=== PATIENT | male | born 1950 | race Caucasian/White ===

== ENCOUNTER → 2016-12-20 | Outpatient (CLI) | payer BC, OTHER ==
[2015-02-09 10:38] VITALS: BP 142/90
[~2016-12-20] MED LIST: ASPI-482 PO; CYCL10TA2 PO; HYDR-2762 PO; HYDR200T PO; IOHEXOL 180 MG/ML 10 ML VIAL. ONE; LOSA50TA6 PO; OMEG1CAP6 PO; PRAS10TA9 PO; PROP80CA12 PO; methylPREDNISolone ACETATE 40 MG/ML VIAL. ONE; methylPREDNISolone ACETATE 80 MG/ML VIAL. ONE
--- NOTE | 2016-12-21 02:05 | PAIN ---
DATE OF SERVICE: 12/20/2016 DIAGNOSES: Cervical radiculopathy with post-cervical laminectomy syndrome. HISTORY OF PRESENT ILLNESS: The patient is a 66-year-old male who returns for followup status post cervical epidural steroid injection, last seen on 01/23/2015. The patient eventually had anterior cervical diskectomy and 3-level fusion in 2014. He was doing very well, was very pleased with his pain level and was out of town about 3 weeks ago, stumbled and fell landing on his forehead with all of his weight directly on his head, which stubbed his neck and back, causing some significant pain immediately into the right arm with shocking and radiating sensation in the right arm and hand with sensation now continuing with tingling and numbness in the right thumb and first finger. The patient reports it is aching as well. Also, the left shoulder is very tender, which came up a few days after the fall with radiating pain from the base of the neck into the left shoulder, but not into the left upper extremity any further. The patient reports it is an 8 on a scale of 10 at its worst, a 3 on a scale of 10 at least. It awakens him from sleep at night frequently. He is having difficulty working, using his right hand with good dexterity and tactile sensation, although he has no motor loss in either of the upper extremities. The patient reports it is more tingling and numbness that is annoying and irritating now in the hand. The area in the arm and shoulder on the right side has resolved, but the left shoulder still remains quite painful. PHYSICAL EXAMINATION: VITAL SIGNS: Today, the patient's blood pressure is 151/100, pulse 67, respirations are 20, temperature 97.4 degrees Fahrenheit. GENERAL: The patient is awake, alert, oriented, appropriate, very pleasant demeanor. The patient is accompanied by his daughter. HEENT: Shows normocephalic and atraumatic. Extraocular movements are intact and symmetrical. Oral cavity shows mucous membranes are moist and pink. NECK: Shows anterior throat supple. CHEST: Shows breath sounds clear to auscultation bilaterally. HEART: Shows S1 and S2 clear. ABDOMEN: Soft, nontender, nondistended. BACK: The patient's back shows spine grossly in the midline. Cervical paraspinous musculature shows symmetrical with inspection, significant tightness and tenderness in the musculature in the superior, medial and lateral trapezius on the left, but not the right. The patient shows full rotational motion of the cervical spine, both laterally greater than 45 degrees right and left as well as full extension, full forward flexion without significant pain reported. EXTREMITIES: Upper extremities showed deep tendon reflexes 2+ in the biceps and triceps tendons. Motor exam is strong with reinforcing steel placer strength rated at 5/5 as is biceps and triceps flexion. Peripheral pulses are 2+ in the radial distribution. No peripheral edema is noted. No clubbing or cyanosis. Upper extremities are warm and dry to touch, equal in color and appearance. The patient does have some decreased sensitivity over the lateral aspect of the posterior first finger and the posterior thumb, but without any hyperesthesia or allodynia. Options were discussed with the patient. The patient's old chart was reviewed as his current medication regimen and updated. Current review of systems is updated today as well, and we will proceed with a cervical epidural steroid injection. The patient did have a new MRI scan dated 12/12/2016, showing anterior postoperative fusion as noted with minimal disk bulging at C5-C6 associated with some mild central stenosis, unchanged since 2014, also slight worsening of the disk degeneration at C6-C7 since 01/20/2015, degree of disk bulging is similar associated with moderate bilateral foraminal narrowing. No discrete herniations. Risks were discussed including but not limited to bleeding, infection, possibility of epidural hematoma and subsequent neurological compromise, dural puncture, headaches, spinal cord and/or nerve damage, side effects of steroid medication and poor results regarding pain control. The patient understands and wishes to proceed. The patient will return to the clinic in approximately 2 weeks or as necessary, would like to call for his next appointment. The patient had been taking Effient, he has been off of it for 3 days now by his report and we did discuss significant signs to watch for in case of any epidural bleeding. The patient is very aware of this and understands and will monitor this closely. The patient's daughter was informed of these as well. The patient will follow up as necessary. DIAGNOSIS: Cervical radiculopathy with post-cervical laminectomy syndrome. PROCEDURE: Cervical epidural steroid injection in translaminar approach at the C6-C7 level using C-arm fluoroscopic guidance under sterile prep and drape using local anesthetic. MEDICATION INJECTED: A total of 120 mg of Depo-Medrol plus 5 mL of preservative-free normal saline and 2 mL of Isovue for contrast. CONDITION AT DISCHARGE: Stable. The patient tolerated the procedure well, had no complications. NANCY CORDERO MD DR: BRYSON/judith JOB#: [id number] / [id number]
== END | disposition home or self-care (01) ==
LOC: PNCL 09:41
PROVIDERS: ATTEND Anesthesiology
DX: M54.12 Radiculopathy, cervical region (principal); M96.1 Postlaminectomy syndrome, not elsewhere classified; E78.00 Pure hypercholesterolemia, unspecified; I10 Essential (primary) hypertension; M19.90 Unspecified osteoarthritis, unspecified site; Z72.89 Other problems related to lifestyle
CPT/HCPCS: 62321; J1030; J1040

== ENCOUNTER → 2017-01-09 | Outpatient (CLI) | payer OTHER ==
[2015-02-09 10:38] VITALS: BP 142/90
--- NOTE | 2017-01-10 05:25 | PN ---
DATE: 01/09/2017 PROGRESS NOTE FOR PAIN CLINIC DIAGNOSES: Cervical radiculopathy with post-cervical laminectomy syndrome. HISTORY OF PRESENT ILLNESS: The patient is a 66-year-old male who returns for followup status post cervical epidural steroid injection x 1 on 12/20/2016. The patient did very well, approximately 80% improvement in the pain aspect of his neck and shoulder, still has some numbness and paresthesia in the right thumb and some in the left shoulder, but otherwise doing much better. The patient reports it as a 7 on a scale of 10 at its worst, is a 2 on a scale of 10 currently. It is worse with using the upper extremities as well as repetitive rotation with the neck when he is working and performing procedures, etc. The patient reports that it awakens him from sleep occasionally, but if he repositions or gets out of the bed or changes positions pain, otherwise no new motor or sensory deficits, no new complaints. The patient reports the pain is sharp and tingling with numbness and paresthesia in the right thumb as noted. PHYSICAL EXAMINATION: VITAL SIGNS: Today, the patient's blood pressure is 148/80, pulse is 64, respirations are 18, temperature 97.6 degrees Fahrenheit, weight is 192 pounds. GENERAL: The patient is awake, alert, oriented, appropriate, has a very pleasant demeanor. HEENT: Head shows normocephalic, atraumatic. Extraocular movements are intact and symmetrical. Oral cavity shows mucous membranes moist and pink. Dentition is intact. NECK: Shows anterior throat supple. CHEST: Shows normal on inspection. Breath sounds clear to auscultation bilaterally. HEART: Shows S1 and S2 clear. No murmurs auscultated. NECK: Shows posteriorly cervical paraspinous musculature symmetrical without significant tenderness to palpation. Good rotational motion both laterally as well as extension and flexion without exacerbation of pain. EXTREMITIES: Upper extremities showed deep tendon reflexes 2+ in the biceps and triceps tendons. Motor exam is strong with 5/5 ring packer strength, biceps and triceps flexion and symmetrical. Options were discussed with the patient. At this time, the patient's old chart was reviewed as his current medication regimen updated. Current review of systems updated today as well. We will proceed with a cervical epidural steroid injection that is second in the series with fluoroscopic guidance. Risks were again discussed including, but not limited to bleeding, infection, possibility of epidural hematoma, subsequent neurologic compromise, dural puncture, headaches, spinal cord and/or nerve damage, side effects of steroid medication and poor results regarding pain control. The patient understands and wishes to proceed. The patient will return to clinic in approximately 2 weeks for followup, was counseled on return appointment, activity level, and side effects to be aware of. The patient will also start his Effient medication tomorrow as he has held this for the past 3 days by his record as well. DIAGNOSES: Cervical radiculopathy with post-cervical laminectomy syndrome. PROCEDURE: Cervical epidural steroid injection, translaminar approach at the C6-C7 level using C-arm fluoroscopic guidance after sterile prep and drape using local anesthetic. Medications injected is a total of 120 mg Depo-Medrol plus 5 mL preservative free normal saline and 2 mL of Isovue for contrast. CONDITION AT DISCHARGE: Stable. The patient tolerated the procedure well, had no complications. NANCY CORDERO MD DR: BRYSON/judith JOB#: [id number] / [id number]
== END | disposition home or self-care (01) ==
LOC: PNCL 13:43
PROVIDERS: ATTEND Anesthesiology
DX: M54.12 Radiculopathy, cervical region (principal); M96.1 Postlaminectomy syndrome, not elsewhere classified; E78.00 Pure hypercholesterolemia, unspecified; I10 Essential (primary) hypertension; M19.90 Unspecified osteoarthritis, unspecified site; Z72.89 Other problems related to lifestyle; Z83.3 Family history of diabetes mellitus; Z82.49 Family history of ischemic heart disease and other diseases of the circulatory system
CPT/HCPCS: 62321; J1030; J1040

== ENCOUNTER → 2017-01-30 | Outpatient (CLI) | payer OTHER ==
[2015-02-09 10:38] VITALS: BP 142/90
== END | disposition home or self-care (01) ==
LOC: PNCL 14:36
PROVIDERS: ATTEND Anesthesiology
DX: M50.30 Other cervical disc degeneration, unspecified cervical region (principal); I25.10 Atherosclerotic heart disease of native coronary artery without angina pectoris; E78.00 Pure hypercholesterolemia, unspecified; I10 Essential (primary) hypertension; M19.90 Unspecified osteoarthritis, unspecified site; Z86.69 Personal history of other diseases of the nervous system and sense organs; Z87.39 Personal history of other diseases of the musculoskeletal system and connective tissue; Z82.49 Family history of ischemic heart disease and other diseases of the circulatory system; Z83.3 Family history of diabetes mellitus; Z88.6 Allergy status to analgesic agent
CPT/HCPCS: 62321; J1030; J1040

== ENCOUNTER → 2017-04-09 | Outpatient (CLI) | payer OTHER ==
[2015-02-09 10:38] VITALS: BP 142/90
[~2017-04-09] MED LIST changes: +BARIUM SULFATE 340 GM SUSPENSION. PO ONE; +BARIUM SULFATE 40% (APPLE) 148 GM PWD. PO ONE; +BARIUM SULFATE 60% 355 ML SUSP PO ONE; -IOHEXOL 180 MG/ML 10 ML VIAL. ONE; +SIMETHICONE/SOD BICARB/CITRIC ACID PACKET. PO ONE; -methylPREDNISolone ACETATE 40 MG/ML VIAL. ONE; -methylPREDNISolone ACETATE 80 MG/ML VIAL. ONE
--- NOTE | 2017-04-09 11:56 | RAD ---
Indication difficulty swallowing. Sensation of food getting caught in the throat. With a member of the Department of speech pathology swallowing was evaluated. No fluoroscopic images were obtained. Fluoroscopy time associated with the study was 2.6 minutes. The initiation of swallowing was normal. There is no flash penetration or aspiration. Occasionally minimal residual was seen in the vallecula but this was intermittent and no substantial residual was seen in the vallecula or performed sinuses. See speech pathology notes for additional details IMPRESSION: No significant finding seen on video swallow exam
--- NOTE | 2017-04-09 12:16 | RAD ---
Indication difficulty swallowing. Sensation of food getting caught in throat. The esophagus was evaluated. Thick and thin contrast was administered. 3 Cini Fluoroscopy loops were generated. Fluoroscopy time associated with the exam was 1.7 minutes. Initiation of swallowing was normal. No esophageal strictures, erosions or definite mucosal abnormalities were seen. Occasional tertiary contractions were identified. There was a small hiatus hernia. IMPRESSION: No significant finding seen on esophagram. Occasional tertiary contractions were identified. There was a small hiatus hernia
== END | disposition home or self-care (01) ==
LOC: RAD 10:02
PROVIDERS: ATTEND Otolaryngology
DX: R13.10 Dysphagia, unspecified (principal)
CPT/HCPCS: 74220; 74230; 92526; 92611

== ENCOUNTER → 2019-06-22 | Day surgery (SDC) | payer BC, OTHER ==
[~2019-06-22] MED LIST changes: -BARIUM SULFATE 340 GM SUSPENSION. PO ONE; -BARIUM SULFATE 40% (APPLE) 148 GM PWD. PO ONE; -BARIUM SULFATE 60% 355 ML SUSP PO ONE; +CLOP75TA PO; -HYDR-2762 PO; +HYDR-2765 PO; -HYDR200T PO; +HYDR200T71 PO; +IV RINGERS,LACTATED 1000ML 1,000 ML IV ONE; +LOSA-73 PO; -LOSA50TA6 PO; +MIDAZOLAM HCL/PF 5 MG/5 ML VIAL. IV ONE; +MIDAZOLAM HCL/PF 5 MG/5 ML VIAL. ONE; -PROP80CA12 PO; +PROP80CA45 PO; -SIMETHICONE/SOD BICARB/CITRIC ACID PACKET. PO ONE; +fentaNYL PF VIAL 100 MCG/2 ML VIAL IV ONE; +fentaNYL PF VIAL 100 MCG/2 ML VIAL ONE
[2019-06-22 18:13] VITALS: BP 142/80
--- NOTE | 2019-06-23 02:36 | CONS ---
DATE OF CONSULTATION: 06/22/2019 REFERRING PHYSICIAN: Dr. Robert Hutton. REASON FOR CONSULTATION: Recurrent dysphagia. HISTORY OF PRESENT ILLNESS: A 68-year-old male with past medical history significant for hypertension, hyperlipidemia, status post OR, status post angioplasty, status post cervical neck fusion seen with recurrent dysphagia and more difficulty with solids as well as liquids requiring chin tuck for swallowing. Previous dilatation did help until recently. PAST MEDICAL HISTORY: Organic heart disease, status post stenting, hyperlipidemia, hypertension. ALLERGIES: MORPHINE. MEDICATIONS: Include aspirin, Plavix, Plaquenil, losartan, omega-3 and propranolol. PAST SURGICAL HISTORY: Status post appendectomy, back surgery, hernia repair, tonsillectomy and vasectomy. SOCIAL HISTORY: Former smoker, social drinker. FAMILY HISTORY: Per records. REVIEW OF SYSTEMS: Per records. PHYSICAL EXAMINATION: GENERAL: Reveals a well-nourished, well-developed male who is alert, cooperative, in no acute distress. VITAL SIGNS: Afebrile, pulse is 70, respirations 15. HEENT: Normocephalic, atraumatic head. Pupils and extraocular muscles are not tested. Sclerae anicteric. NECK: Supple. LUNGS: Clear. CARDIOVASCULAR: Reveals an S1, S2 without S3, S4 or appreciable murmur. ABDOMEN: Reveals a soft abdomen, normal bowel sounds, without appreciable hepatosplenomegaly. EXTREMITIES: Reveals no cyanosis, clubbing or edema. IMPRESSION: Dysphagia, status post neck fusion anteriorly. Differential includes goiter, cervical osteophytes, oropharyngeal dysphagia, Greenberg's esophagus, achalasia, eosinophilic esophagitis. Therefore, recommend upper endoscopy with possible biopsy and dilatation. Risks and benefits of procedure including risk of hemorrhage and perforation during the operation have been discussed. The patient is willing to proceed at this time. TRINITY GUTIERRES MD DR: ISELA/judith JOB#: [id number] / [id number]
== END ==
LOC: ENDOS 16:56
PROVIDERS: ATTEND Internal Medicine Gastroenterology
DX: R13.10 Dysphagia, unspecified (principal); K22.2 Esophageal obstruction; I10 Essential (primary) hypertension; E78.5 Hyperlipidemia, unspecified; I25.2 Old myocardial infarction; Z88.6 Allergy status to analgesic agent; Z98.890 Other specified postprocedural states; Z98.52 Vasectomy status; Z87.891 Personal history of nicotine dependence; Z72.89 Other problems related to lifestyle
CPT/HCPCS: 43235; 43450; J2250; J3010; 99152

== ENCOUNTER → 2020-06-28 | Outpatient (CLI) | payer BC ==
[2019-06-22 18:13] VITALS: BP 142/80
[~2020-06-28] MED LIST changes: -IV RINGERS,LACTATED 1000ML 1,000 ML IV ONE; -MIDAZOLAM HCL/PF 5 MG/5 ML VIAL. IV ONE; -MIDAZOLAM HCL/PF 5 MG/5 ML VIAL. ONE; -fentaNYL PF VIAL 100 MCG/2 ML VIAL IV ONE; -fentaNYL PF VIAL 100 MCG/2 ML VIAL ONE
--- NOTE | 2020-06-28 16:23 | KCIC ---
ESOPHAGRAM 06/28/2020. Reason for study: History of hiatal hernia and esophagitis. Comparison studies: None. Technique: Esophagram was performed utilizing double contrast upright examination, single contrast prone examination, and cine evaluation of cervical esophageal swallow function. Fluoroscopy time: 79 seconds Number of images: 12 Findings: Barium swallow was performed without difficulty. Minimally prominent cricopharyngeus without significant luminal narrowing. Esophageal peristalsis and motility were normal. No mucosal abnormalities. Small hiatal hernia. No significant reflux identified. No esophageal diverticulum. Fundus of the stomach was unremarkable. Anterior cervical discectomy and fusion hardware is identified from C3 through C6 with ventral plate and screws. There is no prevertebral soft tissue swelling or obstruction to passage of contrast through the cervical esophagus. Barium tablet was administered and passes into the stomach without difficulty. IMPRESSION: 1. There is small hiatal hernia. 2. Anterior cervical discectomy and fusion hardware from C3 through C6 without evidence for hardware failure. No mass effect by the hardware or prevertebral soft tissues. 3. Barium tablet passed without difficulty, however patient reports persistent globus feeling. Electronically signed by: Lor More MD (06/28/2020 4:20 PM) [id number]
== END ==
LOC: KCIC 08:24
PROVIDERS: ATTEND Internal Medicine Gastroenterology
DX: K44.9 Diaphragmatic hernia without obstruction or gangrene (principal); M43.22 Fusion of spine, cervical region
CPT/HCPCS: 74220